=== PATIENT | female | born 1995 | race Caucasian/White ===

== ENCOUNTER 2017-11-11 10:22 | Emergency (ER) | payer OTHER ==
[2017-11-11] MEDS ORDERED: ONDANSETRON 4 MG (ODT) TAB ONE (12:58)
--- NOTE | 2017-11-11 13:20 | RAD REPORT ---
EXAM DESCRIPTION: RAD - Chest Pa And Lat (2 Views) - 11/11/2017 1:03 pm CLINICAL HISTORY: Sore throat, vomiting COMPARISON: January 2017 TECHNIQUE: PA and lateral views of the chest were obtained. FINDINGS: The lungs are clear. Lung markings are similar to prior imaging. Pectus excavatum deformi ty noted. Heart size is normal and central vasculature is within normal limits. No pleural effusion or pneumothorax seen. No acute bony finding noted. No aortic abnormality. IMPRESSION: No acute cardiopulmonary process. No significant change from comparison.
--- NOTE | 2017-11-11 14:19 | ER ---
Nurse's Notes [facility] Name: Mica Michel Age: 22 yrs Sex: Female : 1995 Arrival Date: 11/11/2017 Time: 10:23 Bed 14 Private MD: Diagnosis: Acute upper respiratory infection, unspecified;Vomiting Presentation: 11/11 10:48 Presenting complaint: Patient states: Sore throat and vomiting since last night. rb1 Transition of care: patient was not received from another setting of care. Onset of symptoms was November 11, 2017 at 01:00. Care prior to arrival: None. 10:48 Method Of Arrival: Ambulatory rb1 10:48 Acuity: ALANNA 4 rb1 Triage Assessment: 10:45 General: Appears uncomfortable, slender, Behavior is calm, cooperative, Denies fever. rb1 Pain: Complains of pain in throat Pain currently is 10 out of 10 on a pain scale. Pain began last night. EENT: Throat is reddened. Neuro: Level of Consciousness is awake, alert, obeys commands, Oriented to person, place, time, situation. Cardiovascular: Capillary refill < 3 seconds is brisk in bilateral fingers. Respiratory: Airway is patent Respiratory effort is even, unlabored, Respiratory pattern is regular, symmetrical. GI: Reports nausea, vomiting, since last night. : No signs and/or symptoms were reported regarding the genitourinary system. Derm: Skin is pink, warm \T\ dry. 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 - Social history:: The patient lives at home, Smoking status: Patient/guardian denies using tobacco. Screenin:48 Abuse screen: Denies threats or abuse. Nutritional screening: No deficits noted. rb1 Tuberculosis screening: No symptoms or risk factors identified. Fall Risk None identified. Assessment: 10:45 General: see triage assessment. rb1 10:45 Respiratory: Breath sounds with rhonchi bilaterally. rb1 11:40 Reassessment: Patient appears in no apparent distress at this time. Patient and/or rb1 family updated on plan of care and expected duration. Pain level reassessed. Patient is alert, oriented x 3, equal unlabored respirations, skin warm/dry/pink. 12:38 Reassessment: Patient appears in no apparent distress at this time. No changes from rb1 previously documented assessment. 13:28 Reassessment: Patient appears in no apparent distress at this time. Patient and/or rb1 family updated on plan of care and expected duration. Pain level reassessed. Patient is alert, oriented x 3, equal unlabored respirations, skin warm/dry/pink. Mother at bedside. 14:15 Reassessment: Patient appears in no apparent distress at this time. No changes from rb1 previously documented assessment. Vital Signs: 10:45 BP 130 / 88; Pulse 80; Resp 17; Temp 97.9(O); Pulse Ox 100% on R/A; Weight 66 kg (M); rb1 Height 5 ft. 10 in. (177.80 cm) (R); Pain 10/10; 11:30 BP 108 / 93; Pulse 59; Resp 17; Pulse Ox 100% on R/A; rb1 12:30 BP 115 / 72; Pulse 60; Resp 16; Pulse Ox 100% on R/A; rb1 13:30 BP 117 / 73; Pulse 60; Resp 17; Pulse Ox 100% ; rb1 14:23 BP 121 / 71; Pulse 59; Resp 18; Pulse Ox 100% on R/A; rb1 10:45 Body Mass Index 20.88 (66.00 kg, 177.80 cm) rb1 ED Course: 10:23 Patient arrived in ED. as 10:45 Arm band placed on right wrist. rb1 10:47 Thania Payne, RN is Primary Nurse. rb1 10:48 Patient has correct armband on for positive identification. Bed in low position. Call rb1 light in reach. Side rails up X 1. Pulse ox on. NIBP on. 10:49 Triage completed. rb1 10:51 John Harris MD is Attending Physician. gs 12:56 Patient moved to radiology via wheelchair. jb2 13:02 X-ray completed. Patient tolerated procedure well. Patient moved back from radiology. jb2 13:03 XRAY Chest Pa And Lat (2 Views) In Process Unspecified. EDMS 14:32 Throat Culture Sent. rb1 14:33 No provider procedures requiring assistance completed. Patient did not have IV access rb1 during this emergency room visit. Administered Medications: 12:40 Drug: Zofran 4 mg Route: PO; rb1 13:09 Follow up: Response: No adverse reaction; Nausea is decreased rb1 Outcome: 14:18 Discharge ordered by . gs 14:34 Discharged to home ambulatory, with family. rb1 14:34 Condition: stable 14:34 Discharge instructions given to patient, Instructed on discharge instructions, follow up and referral plans. medication usage, Demonstrated understanding of instructions, follow-up care, medications, Prescriptions given X 1. 14:35 Patient left the ED. rb1 Signatures: Dispatcher [employer] EDMS Ty Ceballos Amelia as Barber, Rebecca, RN RN rb1 John Harris MD MD Corrections: (The following items were deleted from the chart) 13:03 10:48 General: see triage assessment. rb1 rb1 13:03 10:48 Respiratory: Reports cough that is Airway is patent Respiratory effort is even, rb1 unlabored, Respiratory pattern is regular, symmetrical, rb1 14:33 14:23 BP 121 / 71; Pulse 67bpm; Resp 17bpm; Pulse Ox 99% RA; rb1 rb1
--- NOTE | 2017-11-11 14:19 | EDPHYS ---
Physician Documentation [facility] Name: Mica Michel Age: 22 yrs Sex: Female : 1995 Arrival Date: 11/11/2017 Time: 10:23 Bed 14 Private MD: ED Physician John Harris HPI: 11/11 14:14 This 22 yrs old Female presents to ER via Ambulatory with complaints of Sore gs Throat, Vomiting. 14:14 The patient or guardian reports cough, that is intermittent. Onset: The gs symptoms/episode began/occurred yesterday. Severity of symptoms: At their worst the symptoms were moderate, in the emergency department the symptoms are unchanged. Modifying factors: The symptoms are alleviated by nothing, the symptoms are aggravated by nothing. Associated signs and symptoms: Pertinent positives: sore throat, vomiting. The patient has experienced similar episodes in the past, a few times. The patient has not recently seen a physician. 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 - Social history:: The patient lives at home, Smoking status: Patient/guardian denies using tobacco. ROS: 14:14 All other systems are negative. gs Exam: 14:14 Head/Face: Normocephalic, atraumatic. Eyes: Pupils equal round and reactive to light, gs extra-ocular motions intact. Lids and lashes normal. Conjunctiva and sclera are non-icteric and not injected. Cornea within normal limits. Periorbital areas with no swelling, redness, or edema. ENT: Nares patent. No nasal discharge, no septal abnormalities noted. Tympanic membranes are normal and external auditory canals are clear. Oropharynx with no redness, swelling, or masses, exudates, or evidence of obstruction, uvula midline. Mucous membranes moist. Neck: Trachea midline, no thyromegaly or masses palpated, and no cervical lymphadenopathy. Supple, full range of motion without nuchal rigidity, or vertebral point tenderness. No Meningismus. Chest/axilla: Normal chest wall appearance and motion. Nontender with no deformity. No lesions are appreciated. Cardiovascular: Regular rate and rhythm with a normal S1 and S2. No gallops, murmurs, or rubs. Normal PMI, no JVD. No pulse deficits. Respiratory: Lungs have equal breath sounds bilaterally, clear to auscultation and percussion. No rales, rhonchi or wheezes noted. No increased work of breathing, no retractions or nasal flaring. Abdomen/GI: Soft, non-tender, with normal bowel sounds. No distension or tympany. No guarding or rebound. No evidence of tenderness throughout. Back: No spinal tenderness. No costovertebral tenderness. Full range of motion. Skin: Warm, dry with normal turgor. Normal color with no rashes, no lesions, and no evidence of cellulitis. MS/ Extremity: Pulses equal, no cyanosis. Neurovascular intact. Full, normal range of motion. Neuro: Awake and alert, GCS 15, oriented to person, place, time, and situation. Cranial nerves II-XII grossly intact. Motor strength 5/5 in all extremities. Sensory grossly intact. Cerebellar exam normal. Normal gait. 14:14 Constitutional: The patient appears alert, awake. Vital Signs: 10:45 BP 130 / 88; Pulse 80; Resp 17; Temp 97.9(O); Pulse Ox 100% on R/A; Weight 66 kg (M); rb1 Height 5 ft. 10 in. (177.80 cm) (R); Pain 10/10; 11:30 BP 108 / 93; Pulse 59; Resp 17; Pulse Ox 100% on R/A; rb1 12:30 BP 115 / 72; Pulse 60; Resp 16; Pulse Ox 100% on R/A; rb1 13:30 BP 117 / 73; Pulse 60; Resp 17; Pulse Ox 100% ; rb1 14:23 BP 121 / 71; Pulse 59; Resp 18; Pulse Ox 100% on R/A; rb1 10:45 Body Mass Index 20.88 (66.00 kg, 177.80 cm) rb1 MDM: 11:41 Patient medically screened. gs 14:14 Differential Diagnosis: Bronchitis Influenza Upper Respiratory Infection. Data gs reviewed: vital signs, nurses notes. Response to treatment: the patient's symptoms have markedly improved after treatment, patient is well hydrated. no emesis . 11/11 11:43 Order name: Strep; Complete Time: 13:25 gs 11/11 12:24 Order name: Throat Culture EDTN 11/11 11:43 Order name: XRAY Chest Pa And Lat (2 Views); Complete Time: 13:25 gs Administered Medications: 12:40 Drug: Zofran 4 mg Route: PO; rb1 13:09 Follow up: Response: No adverse reaction; Nausea is decreased rb1 Disposition: 11/11/17 14:18 Discharged to Home. Impression: Acute upper respiratory infection, unspecified, Vomiting. - Condition is Stable. - Discharge Instructions: Nausea and Vomiting, Upper Respiratory Infection, Adult, Viral Infections. - Prescriptions for Zofran 4 mg Oral Tablet - take 1 tablet by ORAL route every 12 hours As needed; 10 tablet. - Work release form, Medication Reconciliation Form, Thank You Letter, Antibiotic Education, Prescription Opioid Use form. - Follow up: Private Physician; When: 2 - 3 days; Reason: Re-evaluation by your physician. Signatures: Dispatcher [employer] [facility] Thania Payne, RN RN rb1 John Harris MD MD
== END 2017-11-11 14:35 | disposition home or self-care (01) ==
LOC: ER 10:22
DX: J06.9 Acute upper respiratory infection, unspecified (principal); Z88.8 Allergy status to other drugs, medicaments and biological substances
CPT/HCPCS: 71046; 87070; 87081; 99284

== ENCOUNTER 2019-01-14 12:47 | Emergency (ER) | payer OTHER ==
[2019-01-14] MEDS ORDERED: NA CHLORIDE 0.9% 1,000 ML ONE (13:31)
[2019-01-14] MEDS ORDERED: LORazepam 2 MG/ML VIAL ONE (13:31)
--- NOTE | 2019-01-14 13:44 | RAD REPORT ---
EXAM DESCRIPTION: Char Single View01/14/2019 1:31 pm CLINICAL HISTORY: Chest pain COMPARISON: November 2017 FINDINGS: The lungs appear clear of acute infiltrate. The heart is normal size. Pectus deformity IMPRESSION: No acute abnormalities displayed
[2019-01-14 13:46] LABS: Absolute Lymphocytes (CBC) 1.2 K/uL (0.7-4.9); Absolute Monocytes 0.4 K/uL (0.1-1.3); Absolute Neutrophil 4.2 K/uL (1.8-8.0); Basophils % 0.7 % (0-1.3); Eosinophils % 1.2 % (0-4.4); Hematocrit 40.1 % (36.0-45.0); Lymphocytes % 19.8 % (15.3-44.8); Monocytes % 6.1 % (3.3-12.3); RBC Red Blood Cell Count 4.68 M/uL (3.86-4.86)
[2019-01-14 13:50] LABS: Protime INR 1.02
[2019-01-14 14:02] LABS: ALT/SGPT 13 U/L (12-78); AST/SGOT 10 U/L (15-37); Albumin 4.2 g/dL (3.4-5.0); Alkaline Phosphatase 44 U/L (45-117); BUN Blood Urea Nitrogen 20 mg/dL (7-18); Bicarbonate 23 mmol/L (21-32); Bilirubin Direct 0.1 mg/dL (0-0.2); Bilirubin Total 0.5 mg/dL (0.2-1.0); Glucose Level 76 mg/dL (74-106); NT PRO-BNP 63 pg/mL (<125); Potassium 3.6 mmol/L (3.5-5.1); Protein, Total 7.5 g/dL (6.4-8.2); Sodium Level 141 mmol/L (136-145); Troponin (Emerg Dept Use Only) < 0.02 ng/mL (0.0-0.045)
--- NOTE | 2019-01-14 15:22 | ER ---
Nurse's Notes [facility] Name: Mica Michel Age: 23 yrs Sex: Female : 1995 Arrival Date: 01/14/2019 Time: 12:50 Bed 8 Private MD: Diagnosis: Anxiety disorder, unspecified;Other chest pain-non cardiac Presentation: 01/14 13:11 Presenting complaint: Panic attack while standing in line outside. Also reports chest hb pain and cramping of extremities. R40s. Hx of anxiety. Transition of care: patient was not received from another setting of care. Onset of symptoms was January 14, 2019. Risk Assessment: Do you want to hurt yourself or someone else? Patient reports no desire to harm self or others. Care prior to arrival: None. 13:11 Method Of Arrival: Ambulatory hb 13:11 Acuity: ALANNA 2 hb 13:16 Initial Sepsis Screen: Does the patient meet any 2 criteria? No. Patient's initial hb sepsis screen is negative. Does the patient have a suspected source of infection? No. Patient's initial sepsis screen is negative. 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 - Social history:: Smoking status: Patient/guardian denies using tobacco. - Family history:: not pertinent. - Ebola Screening: : No symptoms or risks identified at this time. Screenin:20 Abuse screen: Denies threats or abuse. Denies injuries from another. Nutritional sv screening: No deficits noted. Tuberculosis screening: No symptoms or risk factors identified. Fall Risk None identified. Assessment: 13:20 General: Appears in no apparent distress. comfortable, well groomed, well developed, sv Behavior is calm. Pain: Complains of pain in chest Pain does not radiate. Pain currently is 4 out of 10 on a pain scale. Quality of pain is described as "tight" Pain began suddenly, Is intermittent. Neuro: Level of Consciousness is awake, alert, obeys commands, Oriented to person, place, time, situation, Moves all extremities. Full function Gait is steady, Speech is normal. Cardiovascular: Patient's skin is warm and dry. Respiratory: Respiratory effort is even, unlabored, Respiratory pattern is regular, symmetrical. Derm: Skin is pink, warm \\T\\ dry. Vital Signs: 13:13 BP 138 / 109; Pulse 167; Resp 46; Temp 97.9(TE); Pulse Ox 98% on R/A; Weight 82.55 kg; hb Height 5 ft. 10 in. (177.80 cm); Pain 4/10; 13:58 BP 102 / 73; Pulse 76; Resp 16; Pulse Ox 100% ; sv 14:50 BP 118 / 75; Pulse 80; Resp 16; Pulse Ox 99% ; sv 16:07 BP 110 / 78; Pulse 81; Resp 18; Temp 98; Pulse Ox 100% on R/A; Pain 0/10; mg2 13:13 Body Mass Index 26.11 (82.55 kg, 177.80 cm) hb ED Course: 12:50 Patient arrived in ED. baron 12:50 Colt Man MD is Attending Physician. baron 13:02 EKG done, by technical applications scientist. reviewed by Colt Man MD. sm3 13:13 Triage completed. hb 13:15 Arm band placed on. hb 13:20 Initial lab(s) drawn, by ia, sent to lab. Inserted saline lock: 20 gauge in right sv antecubital area, using aseptic technique. Blood collected. Flushed right antecubital with 5 ml normal saline. 13:20 Patient maintains SpO2 saturation greater than 95% on room air. sv 13:20 Patient has correct armband on for positive identification. Bed in low position. Call sv light in reach. Side rails up X 1. Adult w/ patient. Pulse ox on. NIBP on. 13:28 Wendy Clinton RN is Primary Nurse. sv 13:29 X-ray completed. Portable x-ray completed in exam room. Patient tolerated procedure sw well. 13:33 XRAY Chest (1 view) In Process Unspecified. EDMS 14:51 Awaiting re-evaluation by ER provider. sv 15:00 Report given to Ziggy HOPKINS. sv 16:06 No provider procedures requiring assistance completed. IV discontinued, intact, mg2 bleeding controlled, No redness/swelling at site. Pressure dressing applied. Administered Medications: 13:30 Drug: NS 0.9% 1000 ml Route: IV; Rate: 1 bolus; Site: right antecubital; hb 14:51 Follow up: Response: No adverse reaction; IV Status: Completed infusion; IV Intake: sv 1000ml 15:13 Not Given (Patient Refused; patient is not anxious ): Ativan 1 mg IVP once mg2 Intake: 14:51 IV: 1000ml; Total: 1000ml. sv Outcome: 15:21 Discharge ordered by . baron 16:07 Discharged to home ambulatory, with family. mg2 16:07 Condition: stable 16:07 Discharge instructions given to patient, family, Instructed on discharge instructions, follow up and referral plans. medication usage, Demonstrated understanding of instructions, follow-up care, medications, Prescriptions given X 1. 16:08 Patient left the ED. mg2 Signatures: Dispatcher [employer] EDWendy Dave RN RN sv Anderson, Corey, MD MD cha Warren, Shannon sw Baxter, Heather, RN RN Ziggy Terry RN RN [facility] Elva Isidro 3
--- NOTE | 2019-01-14 15:22 | EDPHYS ---
Physician Documentation [facility] Name: Mica Michel Age: 23 yrs Sex: Female : 1995 Arrival Date: 01/14/2019 Time: 12:50 Bed 8 Private MD: ED Physician Colt Man HPI: 01/14 13:36 This 23 yrs old Female presents to ER via Ambulatory with complaints of baron Anxiety, Chest Pain. 13:36 The patient or guardian reports chest pain that is located primarily in the substernal baron area. The pain does not radiate. Associated signs and symptoms: Pertinent positives: palpitations, anxiety. The chest pain is described as squeezing. Modifying factors: The symptoms are alleviated by nothing. the symptoms are aggravated by nothing. Severity of pain: At its worst the pain was mild in the emergency department the pain is unchanged. The patient has not experienced similar symptoms in the past. 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 - Social history:: Smoking status: Patient/guardian denies using tobacco. - Family history:: not pertinent. - Ebola Screening: : No symptoms or risks identified at this time. ROS: 13:36 Constitutional: Negative for fever, chills, and weight loss, Eyes: Negative for injury, baron pain, redness, and discharge, ENT: Negative for injury, pain, and discharge, Neck: Negative for injury, pain, and swelling, Respiratory: Negative for shortness of breath, cough, wheezing, and pleuritic chest pain, Abdomen/GI: Negative for abdominal pain, nausea, vomiting, diarrhea, and constipation, Back: Negative for injury and pain, : Negative for injury, bleeding, discharge, and swelling, MS/Extremity: Negative for injury and deformity, Skin: Negative for injury, rash, and discoloration, Neuro: Negative for headache, weakness, numbness, tingling, and seizure, Psych: Negative for depression, anxiety, suicide ideation, homicidal ideation, and hallucinations, Allergy/Immunology: Negative for hives, rash, and allergies, Endocrine: Negative for neck swelling, polydipsia, polyuria, polyphagia, and marked weight changes, Hematologic/Lymphatic: Negative for swollen nodes, abnormal bleeding, and unusual bruising. 13:36 Cardiovascular: Positive for chest pain, of the chest. Exam: 13:36 Constitutional: This is a well developed, well nourished patient who is awake, alert, baron and in no acute distress. Head/Face: Normocephalic, atraumatic. Eyes: Pupils equal round and reactive to light, extra-ocular motions intact. Lids and lashes normal. Conjunctiva and sclera are non-icteric and not injected. Cornea within normal limits. Periorbital areas with no swelling, redness, or edema. ENT: Nares patent. No nasal discharge, no septal abnormalities noted. Tympanic membranes are normal and external auditory canals are clear. Oropharynx with no redness, swelling, or masses, exudates, or evidence of obstruction, uvula midline. Mucous membranes moist. Neck: Trachea midline, no thyromegaly or masses palpated, and no cervical lymphadenopathy. Supple, full range of motion without nuchal rigidity, or vertebral point tenderness. No Meningismus. Chest/axilla: Normal chest wall appearance and motion. Nontender with no deformity. No lesions are appreciated. Cardiovascular: Regular rate and rhythm with a normal S1 and S2. No gallops, murmurs, or rubs. Normal PMI, no JVD. No pulse deficits. Respiratory: Lungs have equal breath sounds bilaterally, clear to auscultation and percussion. No rales, rhonchi or wheezes noted. No increased work of breathing, no retractions or nasal flaring. Abdomen/GI: Soft, non-tender, with normal bowel sounds. No distension or tympany. No guarding or rebound. No evidence of tenderness throughout. Back: No spinal tenderness. No costovertebral tenderness. Full range of motion. Female : Normal external genitalia. Skin: Warm, dry with normal turgor. Normal color with no rashes, no lesions, and no evidence of cellulitis. MS/ Extremity: Pulses equal, no cyanosis. Neurovascular intact. Full, normal range of motion. Neuro: Awake and alert, GCS 15, oriented to person, place, time, and situation. Cranial nerves II-XII grossly intact. Motor strength 5/5 in all extremities. Sensory grossly intact. Cerebellar exam normal. Normal gait. Psych: Awake, alert, with orientation to person, place and time. Behavior, mood, and affect are within normal limits. 13:36 Musculoskeletal/extremity: DVT Exam: No signs of deep vein thrombosis. no pain, no swelling, no tenderness, negative Homans' sign noted on exam, no appreciated bluish discoloration, no erythema, no increased warmth. Vital Signs: 13:13 BP 138 / 109; Pulse 167; Resp 46; Temp 97.9(TE); Pulse Ox 98% on R/A; Weight 82.55 kg; hb Height 5 ft. 10 in. (177.80 cm); Pain 4/10; 13:58 BP 102 / 73; Pulse 76; Resp 16; Pulse Ox 100% ; sv 14:50 BP 118 / 75; Pulse 80; Resp 16; Pulse Ox 99% ; sv 16:07 BP 110 / 78; Pulse 81; Resp 18; Temp 98; Pulse Ox 100% on R/A; Pain 0/10; mg2 13:13 Body Mass Index 26.11 (82.55 kg, 177.80 cm) hb MDM: 12:51 Patient medically screened. [facility] 01/14 12:56 Order name: Basic Metabolic Panel; Complete Time: 15:17 [facility] 01/14 12:56 Order name: CBC with Diff; Complete Time: 15:17 [facility] 01/14 12:56 Order name: LFT's; Complete Time: 15:17 [facility] 01/14 12:56 Order name: Magnesium; Complete Time: 15:17 [facility] 01/14 12:56 Order name: NT PRO-BNP; Complete Time: 15:17 [facility] 01/14 12:56 Order name: PT-INR; Complete Time: 15:17 [facility] 01/14 12:56 Order name: Troponin (emerg Dept Use Only); Complete Time: 15:17 [facility] 01/14 12:56 Order name: XRAY Chest (1 view); Complete Time: 15:17 [facility] 01/14 12:56 Order name: Acetaminophen; Complete Time: 15:17 [facility] 01/14 12:56 Order name: ETOH Level; Complete Time: 15:17 [facility] 01/14 12:56 Order name: Ptt, Activated; Complete Time: 15:17 [facility] 01/14 12:56 Order name: Salicylate; Complete Time: 15:17 [facility] 01/14 12:56 Order name: EKG; Complete Time: 12:57 [facility] 01/14 12:56 Order name: Cardiac monitoring; Complete Time: 13:40 [facility] 01/14 12:56 Order name: EKG - Nurse/Tech; Complete Time: 13:40 [facility] 01/14 12:56 Order name: IV Saline Lock; Complete Time: 13:40 [facility] 01/14 12:56 Order name: Labs collected and sent; Complete Time: 13:40 [facility] 01/14 12:56 Order name: O2 Per Protocol; Complete Time: 13:40 [facility] 01/14 12:56 Order name: O2 Sat Monitoring; Complete Time: 13:40 [facility] Administered Medications: 13:30 Drug: NS 0.9% 1000 ml Route: IV; Rate: 1 bolus; Site: right antecubital; hb 14:51 Follow up: Response: No adverse reaction; IV Status: Completed infusion; IV Intake: sv 1000ml 15:13 Not Given (Patient Refused; patient is not anxious ): Ativan 1 mg IVP once mg2 Disposition: 01/14/19 15:21 Discharged to Home. Impression: Anxiety disorder, unspecified, Other chest pain - non cardiac. - Condition is Stable. - Discharge Instructions: Panic Attacks, Nonspecific Chest Pain, Panic Attacks, [id number]. - Prescriptions for Benadryl 25 mg Oral Capsule - take 1 capsule by ORAL route every 6 hours As needed; 30 tablet. - Medication Reconciliation Form, Thank You Letter, Antibiotic Education, Prescription Opioid Use form. - Follow up: Private Physician; When: 2 - 3 days; Reason: Recheck today's complaints, Continuance of care, Re-evaluation by your physician. - Problem is new. - Symptoms have improved. Signatures: Dispatcher [employer] EDWendy Dave RN RN sv Anderson, Corey, MD MD cha Baxter, Heather, RN RN hb Gardose, Michele, RN RN mg2 Corrections: (The following items were deleted from the chart) 16:08 15:21 01/14/2019 15:21 Discharged to Home. Impression: Anxiety disorder, unspecified; mg2 Other chest pain - non cardiac. Condition is Stable. Discharge Instructions: Panic Attacks, Nonspecific Chest Pain, Panic Attacks, [id number]. Prescriptions for Benadryl 25 mg Oral Capsule - take 1 capsule by ORAL route every 6 hours As needed; 30 tablet. and Forms are Medication Reconciliation Form, Thank You Letter, Antibiotic Education, Prescription Opioid Use. Follow up: Private Physician; When: 2 - 3 days; Reason: Recheck today's complaints, Continuance of care, Re-evaluation by your physician. Problem is new. Symptoms have improved. baron
--- NOTE | 2019-01-15 07:19 | EKG ---
Test Date: 2019-01-14 Test Time: 12:54:37 Assembly Leader: TONEY MEASUREMENT RESULTS: Intervals: Rate: 94 WA: 126 QRSD: 86 QT: 360 QTc: 450 [place]: P: 73 WA: 126 QRS: 80 T: -32 INTERPRETIVE STATEMENTS: Sinus rhythm with occasional premature ventricular complexes Nonspecific ST and T wave abnormality Abnormal ECG Compared to ECG 01/29/2017 12:17:58 Ventricular premature complex(es) now present ST (T wave) deviation now present T-wave abnormality no longer present Electronically Signed On 01-15-19 07:16:10 CDT by Jose Manuel Rosa
== END 2019-01-14 16:08 | disposition home or self-care (01) ==
LOC: ER 12:47
DX: F41.9 Anxiety disorder, unspecified (principal); R07.9 Chest pain, unspecified; Z88.8 Allergy status to other drugs, medicaments and biological substances
CPT/HCPCS: 36415; 71045; 80048; 80076; 80320; 80329; 83735; 83880; 84484; 85025; 85610; 85730; 93005; 96360; 99285; J7030

== ENCOUNTER 2019-08-13 19:08 | Emergency (ER) | payer OTHER, SELFPAY ==
[2019-08-13 20:18] LABS: Absolute Lymphocytes (CBC) 1.3 K/uL (0.7-4.9); Basophils % 0.6 % (0-1.3); Hematocrit 37.8 % (36.0-45.0); Lymphocytes % 30.7 % (15.3-44.8); MPV 10.5 fL (7.6-11.3); RBC Red Blood Cell Count 4.45 M/uL (3.86-4.86)
[2019-08-13 20:39] LABS: ALT/SGPT 17 U/L (12-78); AST/SGOT 10 U/L (15-37); Albumin 3.7 g/dL (3.4-5.0); Alkaline Phosphatase 46 U/L (45-117); BUN Blood Urea Nitrogen 18 mg/dL (7-18); Bicarbonate 25 mmol/L (21-32); Bilirubin Total 0.4 mg/dL (0.2-1.0); Glucose Level 102 mg/dL (74-106); Lipase 156 U/L (73-393); Magnesium 1.9 mg/dL (1.8-2.4); Sodium Level 141 mmol/L (136-145); Troponin (Emerg Dept Use Only) < 0.02 ng/mL (0.0-0.045)
[2019-08-13] MEDS ORDERED: POTASSIUM CL SA 10 MEQ TAB PO ONE (21:22)
[2019-08-13 21:30] LABS: Urine Blood NEGATIVE (NEG); Urine Glucose NEGATIVE (NEG); Urine Protein 1+ (NEG); Urine pH 6.5 (5.0-7.0)
[2019-08-13 22:12] LABS: Urine Bacteria 20-50 /HPF (<20); Urine Culture Reflex Order REFLEXED; Urine Mucus 2+ /HPF (NONE SEEN); Urine RBC <5 /HPF (NONE SEEN)
--- NOTE | 2019-08-13 22:32 | ER ---
Nurse's Notes [facility] Name: Mica Michel Age: 24 yrs Sex: Female : 1995 Arrival Date: 08/13/2019 Time: 19:11 Bed 20 Private MD: Diagnosis: Near Syncope;POTS (differential);Acute cystitis without hematuria Presentation: 08/13 19:11 Presenting complaint: EMS states: SHE WAS FEELING SICK FOR COUPLE OF DAYS NOW. TODAY AT [employer] WORK, IT HAS PROGRESSIVELY WORSENING AND HAVING SOME CHEST PAIN. SHARP INTERMITTENT PAIN 7/10 THAT RADIATES UNDER THE LEFT BREAST DOWN TO THE LEFT SIDE, AND ALSO TO THE LEFT ARM. WITH HISTORY OF SVT, ON EKG SHE IS SINUS TACH AT 106. Transition of care: patient was not received from another setting of care. Onset of symptoms was August 13, 2019 at 18:00. Risk Assessment: Do you want to hurt yourself or someone else? Patient reports no desire to harm self or others. Initial Sepsis Screen: Does the patient meet any 2 criteria? No. Patient's initial sepsis screen is negative. Does the patient have a suspected source of infection? No. Patient's initial sepsis screen is negative. Care prior to arrival: None. 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 - Social history:: Smoking status: Patient/guardian denies using tobacco. - Ebola Screening: : No symptoms or risks identified at this time. Screenin:17 Abuse screen: Denies threats or abuse. Denies injuries from another. Nutritional rv screening: No deficits noted. Tuberculosis screening: No symptoms or risk factors identified. Fall Risk None identified. Assessment: 19:15 General: Appears in no apparent distress. Behavior is anxious. Pain: Complains of pain rv in chest Pain radiates to left arm Pain currently is 7 out of 10 on a pain scale. Quality of pain is described as sharp. Neuro: Level of Consciousness is awake, alert, obeys commands, Oriented to person, place, time, situation. Cardiovascular: Patient's skin is warm and dry. Rhythm is regular. Respiratory: Airway is patent. Derm: Skin is intact. Vital Signs: 19:14 BP 136 / 71; Pulse 94; Resp 24; Temp 98; Pulse Ox 100% ; Weight 63.5 kg; Height 5 ft. rv 11 in. (180.34 cm); Pain 7/10; 20:24 BP 117 / 63; Pulse 69; Resp 18; Pulse Ox 99% on R/A; rv 20:49 BP 111 / 71 LA Supine (auto/pedi); Pulse 63 MON; Resp 18 S; Pulse Ox 100% on R/A; ds4 20:51 BP 112 / 75 LA Sitting (auto/pedi); Pulse 70 MON; Resp 14 S; Pulse Ox 100% on R/A; ds4 20:53 BP 114 / 78 LA Standing (auto/pedi); Pulse 78 MON; Resp 18 S; Pulse Ox 100% on R/A; ds4 22:00 BP 114 / 68; Pulse 66; Resp 16; Pulse Ox 100% on R/A; rv 23:01 BP 110 / 60; Pulse 62; Resp 16; Pulse Ox 100% ; rv 19:14 Body Mass Index 19.53 (63.50 kg, 180.34 cm) rv ED Course: 19:11 Patient arrived in ED. rv 19:13 Emir Schulte MD is Attending Physician. ps1 19:14 Triage completed. rv 19:17 Patient has correct armband on for positive identification. Bed in low position. Call rv light in reach. Side rails up X 1. Pulse ox on. NIBP on. 19:17 Patient placed in the treatment room, on a stretcher, on redevelopment manager, on pulse rv oximetry, Patient notified of wait time. 19:18 Maintain EMS IV. Dressing intact. Good blood return noted. Site clean \T\ dry. Gauge \T\ rv site: G20 right AC. 19:24 EKG done, by ED staff, reviewed by Emir Schulte MD. ds4 19:51 Ameya Solitario, SANDEEP is Primary Nurse. rv 23:02 No provider procedures requiring assistance completed. IV discontinued, intact, rv bleeding controlled, No redness/swelling at site. Pressure dressing applied. Administered Medications: 21: Drug: Potassium Chloride 40 mEq Route: PO; mg2 23:02 Follow up: Response: No adverse reaction rv Outcome: 22:30 Discharge ordered by . ps1 23:03 Discharged to home ambulatory. rv 23:03 Condition: good 23:03 Discharge instructions given to patient, Instructed on discharge instructions, follow up and referral plans. medication usage, Demonstrated understanding of instructions, follow-up care, medications, Prescriptions given X 1. 23:04 Patient left the ED. rv Signatures: Maxx Hung ds4 Emir Schulte MD MD ps1 Ziggy Terry, RN RN mg2 Ameya Solitario RN RN rv
--- NOTE | 2019-08-13 22:33 | EDPHYS ---
Physician Documentation [facility] Name: Mica Michel Age: 24 yrs Sex: Female : 1995 Arrival Date: 08/13/2019 Time: 19:11 Bed 20 Private MD: ED Physician Emir Schulte HPI: 08/13 21:35 This 24 yrs old Female presents to ER via EMS with complaints of Near-Syncope.ps1 21:35 Patient has been seen and evaluated for symptoms similar in the past. Diagnoses of ps1 hyperventilation, anxiety, and syncope. Had cardiac evaluation previously with no new medications. Hx of PVC, SVT, Tachycardia. Tonight at work ([employer]) states that she has been sick for last two days. Possible dehydration. Had PVC on monitor. . 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 - Social history:: Smoking status: Patient/guardian denies using tobacco. - Ebola Screening: : No symptoms or risks identified at this time. ROS: 21:35 Constitutional: Negative for fever, chills, and weight loss, Eyes: Negative for injury, ps1 pain, redness, and discharge, ENT: Negative for injury, pain, and discharge, Cardiovascular: Negative for chest pain, palpitations, and edema, Respiratory: Negative for shortness of breath, cough, wheezing, and pleuritic chest pain, Abdomen/GI: Negative for abdominal pain, nausea, vomiting, diarrhea, and constipation, Skin: Negative for injury, rash, and discoloration, Psych: Negative for depression, anxiety, suicide ideation, homicidal ideation, and hallucinations. 21:35 Neuro: Positive for near syncope. Exam: 21:35 Constitutional: This is a well developed, well nourished patient who is awake, alert, ps1 and in no acute distress. Head/Face: Normocephalic, atraumatic. Eyes: Pupils equal round and reactive to light, extra-ocular motions intact. Lids and lashes normal. Conjunctiva and sclera are non-icteric and not injected. Chest/axilla: Normal chest wall appearance and motion. Nontender with no deformity. No lesions are appreciated. Cardiovascular: Regular rate and rhythm. No gallops, murmurs, or rubs. Normal PMI, no JVD. No pulse deficits. Respiratory: Lungs have equal breath sounds bilaterally, clear to auscultation and percussion. No rales, rhonchi or wheezes noted. No increased work of breathing, no retractions or nasal flaring. Abdomen/GI: Soft, non-tender, with normal bowel sounds. No distension or tympany. No guarding or rebound. No evidence of tenderness throughout. Skin: Warm, dry with normal turgor. Normal color with no rashes, no lesions, and no evidence of cellulitis. MS/ Extremity: Pulses equal, no cyanosis. Neurovascular intact. Full, normal range of motion. Neuro: Awake and alert, GCS 15, oriented to person, place, time, and situation. Cranial nerves II-XII grossly intact. Sensory grossly intact. Vital Signs: 19:14 BP 136 / 71; Pulse 94; Resp 24; Temp 98; Pulse Ox 100% ; Weight 63.5 kg; Height 5 ft. rv 11 in. (180.34 cm); Pain 7/10; 20:24 BP 117 / 63; Pulse 69; Resp 18; Pulse Ox 99% on R/A; rv 20:49 BP 111 / 71 LA Supine (auto/pedi); Pulse 63 MON; Resp 18 S; Pulse Ox 100% on R/A; ds4 20:51 BP 112 / 75 LA Sitting (auto/pedi); Pulse 70 MON; Resp 14 S; Pulse Ox 100% on R/A; ds4 20:53 BP 114 / 78 LA Standing (auto/pedi); Pulse 78 MON; Resp 18 S; Pulse Ox 100% on R/A; ds4 22:00 BP 114 / 68; Pulse 66; Resp 16; Pulse Ox 100% on R/A; rv 23:01 BP 110 / 60; Pulse 62; Resp 16; Pulse Ox 100% ; rv 19:14 Body Mass Index 19.53 (63.50 kg, 180.34 cm) rv MDM: 19:32 Patient medically screened. ps1 22:32 Data reviewed: vital signs, nurses notes, lab test result(s), EKG, and as a result, I ps1 will discharge patient. Counseling: I had a detailed discussion with the patient and/or guardian regarding: the historical points, exam findings, and any diagnostic results supporting the discharge/admit diagnosis, lab results, radiology results, the need for outpatient follow up. 08/13 19:48 Order name: CBC with Diff; Complete Time: 20:24 ps1 08/13 19:48 Order name: Lipase; Complete Time: 20:59 ps1 08/13 19:48 Order name: Magnesium; Complete Time: 20:59 ps1 08/13 19:48 Order name: Troponin (emerg Dept Use Only); Complete Time: 20:59 ps1 08/13 19:48 Order name: CMP; Complete Time: 20:59 ps1 08/13 20:45 Order name: Urine Microscopic Only; Complete Time: 22:25 ds4 08/13 22:27 Interpretation: Abnormal: UWBC 5-10; UBACT 20-50; SQEPI 10-20. ps1 08/13 19:48 Order name: EKG; Complete Time: 19:49 ps1 08/13 19:48 Order name: Cardiac monitoring; Complete Time: 19:51 ps1 08/13 19:48 Order name: EKG - Nurse/Tech; Complete Time: 19:51 ps1 08/13 19:48 Order name: IV Saline Lock; Complete Time: 19:51 ps1 08/13 21:10 Order name: Urine Dipstick--Ancillary (enter results); Complete Time: 21:32 cm6 08/13 21:10 Order name: Urine --Ancillary (enter results); Complete Time: 21:32 cm6 08/13 22:14 Order name: Urine Culture EDAK 08/13 19:48 Order name: Labs collected and sent; Complete Time: 19:51 ps1 08/13 19:48 Order name: NPO; Complete Time: 19:51 ps1 08/13 19:48 Order name: O2 Per Protocol; Complete Time: 19:51 ps1 08/13 19:48 Order name: O2 Sat Monitoring; Complete Time: 19:51 ps1 08/13 19:48 Order name: Urine Dipstick-Ancillary (obtain specimen); Complete Time: 20:44 ps1 08/13 19:48 Order name: Orthostatic Blood Pressure; Complete Time: 21:01 ps1 EC:45 Rate is 76 beats/min. Rhythm is regular. QRS [place] is Normal. CA interval is normal. QRS ps1 interval is normal. QT interval is normal. No Q waves. T waves are Normal. No ST changes noted. Clinical impression: PVC's, artifact. Sinus. Otherwise normal. Interpreted by me. Administered Medications: 21:26 Drug: Potassium Chloride 40 mEq Route: PO; mg2 23:02 Follow up: Response: No adverse reaction rv Disposition: 08/13/19 22:30 Discharged to Home. Impression: Near Syncope, POTS (differential), Acute cystitis without hematuria. - Condition is Stable. - Discharge Instructions: Near-Syncope, Postural Orthostatic Tachycardia Syndrome, Urinary Tract Infection, Adult. - Prescriptions for Keflex 500 mg Oral Capsule - take 1 capsule by ORAL route every 8 hours for 5 days; 15 capsule. - Medication Reconciliation Form, Thank You Letter, Antibiotic Education, Prescription Opioid Use, Work release form form. - Follow up: Private Physician; When: As needed; Reason: Further diagnostic work-up, Recheck today's complaints, Continuance of care, Re-evaluation by your physician. Follow up: Emergency Department; When: As needed; Reason: Worsening of condition. - Problem is an ongoing problem. - Symptoms are unchanged. Signatures: Dispatcher [employer] EDMS Emir Schulte MD MD ps1 Ziggy Terry, SANDEEP RN mg2 Ameya Solitario RN RN rv Corrections: (The following items were deleted from the chart) 22:26 22:27 UWBC 5-10; UBACT 20-50; SQEPI 10-20. ps1 ps1 23:04 22:30 08/13/2019 22:30 Discharged to Home. Impression: Near Syncope; POTS rv (differential); Acute cystitis without hematuria. Condition is Stable. Forms are Medication Reconciliation Form, Thank You Letter, Antibiotic Education, Prescription Opioid Use. Follow up: Private Physician; When: As needed; Reason: Further diagnostic work-up, Recheck today's complaints, Continuance of care, Re-evaluation by your physician. Follow up: Emergency Department; When: As needed; Reason: Worsening of condition. Problem is an ongoing problem. Symptoms are unchanged. ps1
[2019-08-14 00:48] VITALS: TEMP 98
[2019-08-14 00:51] VITALS: O2SAT 100
[2019-08-14 00:57] VITALS: BP 110/60
--- NOTE | 2019-08-14 14:52 | EKG ---
Test Date: 2019-08-13 Test Time: 19:18:51 Materials Management Supervisor: JANNET MEASUREMENT RESULTS: Intervals: Rate: 76 WA: 128 QRSD: 96 QT: 400 QTc: 450 [place]: P: 81 WA: 128 QRS: 77 T: 40 INTERPRETIVE STATEMENTS: Sinus rhythm with frequent premature ventricular complexes Nonspecific ST abnormality Abnormal ECG Compared to ECG 01/14/2019 12:54:37 No significant changes Electronically Signed On 08-14-19 14:50:22 IN HOUSE CRA by Jose Manuel Rosa
== END 2019-08-13 23:04 | disposition home or self-care (01) ==
LOC: ER 19:08
DX: I49.8 Other specified cardiac arrhythmias (principal); N30.00 Acute cystitis without hematuria; Z88.8 Allergy status to other drugs, medicaments and biological substances
CPT/HCPCS: 36415; 80053; 81003; 81015; 81025; 83690; 83735; 84484; 85025; 87086; 87088; 93005; 99284

== ENCOUNTER 2019-10-20 09:28 | Emergency (ER) | payer OTHER, SELFPAY ==
[2019-10-20] MEDS ORDERED: IPRATROPIUM BROM 0.5MG/2.5ML ONE (09:54)
[2019-10-20] MEDS ORDERED: ALBUTEROL 2.5 MG/3 ML NEB SOL ONE (09:54)
[2019-10-20] MEDS ORDERED: METHYLPREDNISOLONE 125 MG INJ ONE (09:54)
[2019-10-20] MEDS ORDERED: HYDROCODONE/CHLORPHEN 5 ML/OSYR ONE (10:00)
[2019-10-20 10:04] LABS: Absolute Lymphocytes (CBC) 1.3 K/uL (0.7-4.9); Basophils % 0.4 % (0-1.3); Hematocrit 37.7 % (36.0-45.0); Lymphocytes % 17.5 % (15.3-44.8); RBC Red Blood Cell Count 4.33 M/uL (3.86-4.86)
[2019-10-20 10:13] LABS: BUN Blood Urea Nitrogen 14 mg/dL (7-18); Bicarbonate 25 mmol/L (21-32); Glucose Level 82 mg/dL (74-106); Potassium 3.2 mmol/L (3.5-5.1); Sodium Level 139 mmol/L (136-145)
--- NOTE | 2019-10-20 10:41 | RAD REPORT ---
EXAM DESCRIPTION: Char Single View10/20/2019 10:30 am CLINICAL HISTORY: Cough COMPARISON: 2018 FINDINGS: Right hemidiaphragm is indistinct The remainder of the lungs appear clear Heart is normal size IMPRESSION: Right hemidiaphragm is indistinct which may indicate a mild pneumonia
[2019-10-20] MEDS ORDERED: POTASSIUM CL SA 10 MEQ TAB PO ONE (10:42)
--- NOTE | 2019-10-20 11:30 | ER ---
Nurse's Notes [facility] Name: Mica Michel Age: 24 yrs Sex: Female : 1995 Arrival Date: 10/20/2019 Time: 09:31 Bed 7 Private MD: Diagnosis: Pneumonia due to other specified bacteria Presentation: 10/19 09:39 Chief complaint: Patient states: i have been coughing and sinus stuff since , tw2 today i just feel real sob, no fever. Coronavirus screen: The patient has NOT traveled to a country currently being monitored by the [facility] within the last 14 days. Ebola Screen: Patient negative for fever greater than or equal to 101.5 degrees Fahrenheit, and additional compatible Ebola Virus Disease symptoms Patient denies travel to an Ebola-affected area in the 21 days before illness onset. Initial Sepsis Screen: Does the patient meet any 2 criteria? No. Patient's initial sepsis screen is negative. Does the patient have a suspected source of infection? No. Patient's initial sepsis screen is negative. Risk Assessment: Do you want to hurt yourself or someone else? Patient reports no desire to harm self or others. 09:39 Method Of Arrival: Wheelchair tw2 09:39 Acuity: ALANNA 3 tw2 09:43 Onset of symptoms was October 20, 2019. tw2 Triage Assessment: 09:41 General: Appears in no apparent distress. uncomfortable, slender, Behavior is anxious. tw2 Pain: Complains of pain in chest. EENT: Reports nasal congestion nasal discharge. Cardiovascular:. Respiratory: Reports shortness of breath at rest on exertion cough that is non-productive, persistent. 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 tw2 Historical: - Allergies: 09:42 pseudoephedrine-DM; tw2 09:42 Nyquil; tw2 09:42 dayquil; tw2 - Home Meds: 09:42 None [Active]; tw2 - PMHx: 09:42 Tachycardia; SVT; pvc's; tw2 - PSHx: 09:42 None; tw2 - Immunization history:: Adult Immunizations. - Social history:: Smoking status: . Screenin:43 Abuse screen: Denies threats or abuse. Nutritional screening: No deficits noted. tw2 Tuberculosis screening: No symptoms or risk factors identified. Fall Risk None identified. Assessment: 09:45 General: Appears in no apparent distress. uncomfortable, slender, Behavior is calm, tw2 cooperative, appropriate for age. Pain: Complains of pain in chest Aggravated by deep breathing and cough. Neuro: Level of Consciousness is awake, alert, obeys commands, Oriented to person, place, time, situation. Cardiovascular: Heart tones S1 S2 Capillary refill < 3 seconds. Respiratory: Reports shortness of breath at rest on exertion cough that is non-productive, dry, persistent pain with cough pain with respiration Airway is patent Respiratory effort is even, unlabored, Respiratory pattern is regular, symmetrical, Breath sounds with wheezes bilaterally. GI: No signs and/or symptoms were reported involving the gastrointestinal system. Abdomen is flat, Bowel sounds present X 4 quads. : No signs and/or symptoms were reported regarding the genitourinary system. EENT: Reports nasal congestion nasal discharge. Derm: No signs and/or symptoms reported regarding the dermatologic system. Musculoskeletal: Range of motion: intact in all extremities. 10:45 Reassessment: Patient appears in no apparent distress at this time. Patient and/or hb family updated on plan of care and expected duration. Pain level reassessed. Patient is alert, oriented x 3, equal unlabored respirations, skin warm/dry/pink. 11:41 Reassessment: Patient appears in no apparent distress at this time. No changes from previously documented assessment. Patient and/or family updated on plan of care and expected duration. Pain level reassessed. Patient is alert, oriented x 3, equal unlabored respirations, skin warm/dry/pink. Patient states feeling better. Patient states symptoms have improved. Vital Signs: 09:39 BP 112 / 87; Pulse 83; Resp 17; Temp 98.3(TE); Pulse Ox 100% on R/A; Weight 61.23 kg tw2 (R); Height 5 ft. 11 in. (180.34 cm); Pain 10/10; 10:45 BP 129 / 71; Pulse 88; Resp 15; Pulse Ox 99% on R/A; hb 11:41 BP 117 / 71; Pulse 75; Resp 17; Pulse Ox 98% on R/A; hb 09:39 Body Mass Index 18.83 (61.23 kg, 180.34 cm) tw2 ED Course: 09:31 Patient arrived in ED. ag5 09:34 Bed in low position. Call light in reach. Adult w/ patient. hall monitor on. Pulse tw2 ox on. NIBP on. 09:39 Guevara Torres PA is PHCP. jr8 09:39 Brain Villagran MD is Attending Physician. jr8 09:41 Triage completed. tw2 09:41 Arm band placed on. tw2 09:45 Estephania Murphy, RN is Primary Nurse. tw2 09:55 Inserted saline lock: 20 gauge in right antecubital area, using aseptic technique. tw2 Blood collected. 11:50 No provider procedures requiring assistance completed. IV discontinued, intact, tw2 bleeding controlled, No redness/swelling at site. Pressure dressing applied. Administered Medications: 09:56 Drug: Albuterol - atroVENT (3:1) (2.5 mg - 0.5 mg) 3 ml Route: Nebulizer; hb 10:45 Follow up: Response: No adverse reaction hb 09:57 Drug: SOLU-Medrol 125 mg Route: IVP; Site: right antecubital; hb 10:45 Follow up: Response: No adverse reaction hb 09:57 Drug: Tussionex Pennkinetic ER 5 ml Route: PO; hb 10:45 Follow up: Response: No adverse reaction hb 10:59 Drug: Potassium Chloride 40 mEq Route: PO; hb 11:42 Follow up: Response: No adverse reaction tw2 Outcome: 11:29 Discharge ordered by . jr8 11:50 Discharged to home ambulatory, with family. tw2 11:50 Condition: stable 11:50 Discharge instructions given to patient, family, Instructed on discharge instructions, follow up and referral plans. no drinking with medication, no driving heavy equipment, medication usage, Demonstrated understanding of instructions, follow-up care, medications, Prescriptions given X 4. 11:50 Patient left the ED. tw2 Signatures: Guevara Torres PA PA jr8 Lisa Seals RN RN Estephania Murphy RN RN tw2 Yuki Lindsey ag5
--- NOTE | 2019-10-20 11:31 | EDPHYS ---
Physician Documentation [facility] Name: Mica Michel Age: 24 yrs Sex: Female : 1995 Arrival Date: 10/20/2019 Time: 09:31 Bed 7 Private MD: ED Physician Brain Villagran HPI: 10/19 10:47 This 24 yrs old Female presents to ER via Wheelchair with complaints of Chest jr8 Pain, Shortness Of Breath, Cough. 10:47 The patient has shortness of breath at rest. Onset: The symptoms/episode began/occurred jr8 acutely, today. Duration: The symptoms are continuous. The patient's shortness of breath is aggravated by coughing, is alleviated by nothing. Associated signs and symptoms: Pertinent positives: chest pain, sinus congestion . Severity of symptoms: At their worst the symptoms were moderate in the emergency department the symptoms are unchanged. The patient has not experienced similar symptoms in the past. The patient has not recently seen a physician. Stated that she started with cold like symptoms and now having cough and difficulty breathing . 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 tw2 Historical: - Allergies: 09:42 pseudoephedrine-DM; tw2 09:42 Nyquil; tw2 09:42 dayquil; tw2 - Home Meds: 09:42 None [Active]; tw2 - PMHx: 09:42 Tachycardia; SVT; pvc's; tw2 - PSHx: 09:42 None; tw2 - Immunization history:: Adult Immunizations. - Social history:: Smoking status: . ROS: 10:47 Eyes: Negative for injury, pain, redness, and discharge, ENT: Negative for injury, jr8 pain, and discharge, Neck: Negative for injury, pain, and swelling, Abdomen/GI: Negative for abdominal pain, nausea, vomiting, diarrhea, and constipation, Back: Negative for injury and pain, MS/Extremity: Negative for injury and deformity, Skin: Negative for injury, rash, and discoloration, Neuro: Negative for headache, weakness, numbness, tingling, and seizure. 10:47 Cardiovascular: Positive for chest pain, Negative for edema, orthopnea, palpitations, paroxysmal nocturnal dyspnea. 10:47 Respiratory: Positive for cough, dyspnea on exertion, shortness of breath, wheezing. Exam: 10:47 Eyes: Pupils equal round and reactive to light, extra-ocular motions intact. Lids and jr8 lashes normal. Conjunctiva and sclera are non-icteric and not injected. Cornea within normal limits. Periorbital areas with no swelling, redness, or edema. ENT: Nares patent. No nasal discharge, no septal abnormalities noted. Tympanic membranes are normal and external auditory canals are clear. Oropharynx with no redness, swelling, or masses, exudates, or evidence of obstruction, uvula midline. Mucous membranes moist. Neck: Trachea midline, no thyromegaly or masses palpated, and no cervical lymphadenopathy. Supple, full range of motion without nuchal rigidity, or vertebral point tenderness. No Meningismus. Cardiovascular: Regular rate and rhythm with a normal S1 and S2. No gallops, murmurs, or rubs. Normal PMI, no JVD. No pulse deficits. Abdomen/GI: Soft, non-tender, with normal bowel sounds. No distension or tympany. No guarding or rebound. No evidence of tenderness throughout. Back: No spinal tenderness. No costovertebral tenderness. Full range of motion. Skin: Warm, dry with normal turgor. Normal color with no rashes, no lesions, and no evidence of cellulitis. MS/ Extremity: Pulses equal, no cyanosis. Neurovascular intact. Full, normal range of motion. Neuro: Awake and alert, GCS 15, oriented to person, place, time, and situation. Cranial nerves II-XII grossly intact. Motor strength 5/5 in all extremities. Sensory grossly intact. Cerebellar exam normal. Normal gait. 10:47 Respiratory: mild respiratory distress is noted, Respirations: tachypnea, that is mild, Breath sounds: wheezing: expiratory that is mild, is heard diffusely. Vital Signs: 09:39 BP 112 / 87; Pulse 83; Resp 17; Temp 98.3(TE); Pulse Ox 100% on R/A; Weight 61.23 kg tw2 (R); Height 5 ft. 11 in. (180.34 cm); Pain 10/10; 10:45 BP 129 / 71; Pulse 88; Resp 15; Pulse Ox 99% on R/A; hb 11:41 BP 117 / 71; Pulse 75; Resp 17; Pulse Ox 98% on R/A; hb 09:39 Body Mass Index 18.83 (61.23 kg, 180.34 cm) tw2 MDM: 09:42 Patient medically screened. [facility] 11:28 Data reviewed: vital signs, nurses notes, lab test result(s), radiologic studies, plain jr films. Data interpreted: Pulse oximetry: on room air is 99 %. Interpretation: normal. Counseling: I had a detailed discussion with the patient and/or guardian regarding: the historical points, exam findings, and any diagnostic results supporting the discharge/admit diagnosis, lab results, radiology results, the need for outpatient follow up, a family practitioner, to return to the emergency department if symptoms worsen or persist or if there are any questions or concerns that arise at home. Response to treatment: the patient's symptoms have markedly improved after treatment. ED course: Patient not requiring oxygen. Feeling much better. No wheezing post treatment. Possible early pneumonia present. Will put on Abx along with breathing treatments, cough medicine, and steroids. 10/19 09:46 Order name: CBC with Diff [facility] 10/19 09:46 Order name: Basic Metabolic Panel [facility] 10/19 09:46 Order name: Influenza Screen (a \T\ B) [facility] 10/19 10:16 Order name: Basic Metabolic Panel; Complete Time: 10:23 EDMS 10/19 10:17 Order name: Influenza Screen (A ; Complete Time: 10:32 EDMS 10/19 10:23 Order name: CBC with Automated Diff; Complete Time: 10:32 EDMS 10/19 09:46 Order name: IV; Complete Time: 09:56 [facility] 10/19 09:47 Order name: XRAY Chest (1 view) [facility] Administered Medications: 09:56 Drug: Albuterol - atroVENT (3:1) (2.5 mg - 0.5 mg) 3 ml Route: Nebulizer; hb 10:45 Follow up: Response: No adverse reaction hb 09:57 Drug: SOLU-Medrol 125 mg Route: IVP; Site: right antecubital; hb 10:45 Follow up: Response: No adverse reaction hb 09:57 Drug: Tussionex Pennkinetic ER 5 ml Route: PO; hb 10:45 Follow up: Response: No adverse reaction hb 10:59 Drug: Potassium Chloride 40 mEq Route: PO; hb 11:42 Follow up: Response: No adverse reaction tw2 Disposition: 12:44 Co-signature as Attending Physician, Brain Villagran MD I agree with the assessment and kdr plan of care. Disposition: 10/20/19 11:29 Discharged to Home. Impression: Pneumonia due to other specified bacteria. - Condition is Stable. - Discharge Instructions: Community-Acquired Pneumonia, Adult. - Prescriptions for Prednisone 20 mg Oral Tablet - take 1 tablet by ORAL route once daily for 5 days; 5 tablet. Albuterol Sulfate 2.5 mg /3 mL (0.083 %) Inhalation Solution for Nebulization - inhale 1 unit by NEBULIZATION route every 8 hours As needed; 1 box. Zithromax Z- Joel 250 mg Oral Tablet - take 1 tablet by ORAL route as directed for 5 days Day 1 - take two (2) tablets one time. Day 2, 3, 4 , 5 take one (1) tablet once daily.; 6 tablet. Albuterol Sulfate 90 mcg/actuation - inhale 1-2 puff by INHALATION route every 4-6 hours; 1 Inhaler. - Medication Reconciliation Form, Thank You Letter, Antibiotic Education, Prescription Opioid Use, Work release form, Family Work Release form. - Follow up: Private Physician; When: 2 - 3 days; Reason: Recheck today's complaints, Continuance of care, Re-evaluation by your physician. - Problem is new. - Symptoms have improved. Signatures: Dispatcher [employer] EDMS Brain Villagran MD MD [facility] Guevara Torres PA PA jr8 Lisa Seals RN RN Estephania Murphy RN RN tw2 Corrections: (The following items were deleted from the chart) 11:50 11:29 10/20/2019 11:29 Discharged to Home. Impression: Pneumonia due to other specified tw2 bacteria. Condition is Stable. Forms are Medication Reconciliation Form, Thank You Letter, Antibiotic Education, Prescription Opioid Use. Follow up: Private Physician; When: 2 - 3 days; Reason: Recheck today's complaints, Continuance of care, Re-evaluation by your physician. Problem is new. Symptoms have improved. jr8
[2019-10-20 12:07] VITALS: TEMP 98.3
[2019-10-20 12:10] VITALS: BP 117/71; O2SAT 98
== END 2019-10-20 11:50 | disposition home or self-care (01) ==
LOC: ER 09:28
DX: J15.8 Pneumonia due to other specified bacteria (principal); Z88.8 Allergy status to other drugs, medicaments and biological substances
CPT/HCPCS: 36415; 71045; 80048; 85025; 87804; 94640; 96374; 99285; J2930

== ENCOUNTER 2019-10-27 11:10 | Emergency (ER) | payer SELFPAY ==
--- NOTE | 2019-10-27 11:51 | RAD REPORT ---
EXAM DESCRIPTION: RAD - Chest Single View - 10/27/2019 11:45 am CLINICAL HISTORY: COUGH Chest pain. COMPARISON: Chest Single View dated 10/20/2019; Chest Single View dated 01/14/2019; Chest Pa And Lat (2 Views) dated 11/11/2017; Chest Single View dated 01/29/2017 FINDINGS: Portable technique limits examination quality. Both lung bases are hazy, unchanged. This may be related to mild infiltrate or atelectasis. The heart is normal in size. No displaced fractures. IMPRESSION: No significant change is seen since 10/20/2019.
--- NOTE | 2019-10-27 13:20 | EDPHYS ---
Physician Documentation [facility] Name: Mica Michel Age: 24 yrs Sex: Female : 1995 Arrival Date: 10/27/2019 Time: 11:13 Bed 20 Private MD: ED Physician Brain Villagran HPI: 10/26 13:15 This 24 yrs old Female presents to ER via Ambulatory with complaints of la1 Facial Swelling, Breathing Difficulty. 13:15 Onset: The symptoms/episode began/occurred this morning. Associated signs and symptoms: la1 The patient has no apparent associated signs or symptoms. Modifying factors: The patient symptoms are alleviated by nothing, the patient symptoms are aggravated by nothing. The patient has not experienced similar symptoms in the past. Pt reports that she had PNE recently but this morning she woke up and her face was swollen. Historical: - Allergies: 11:26 dayquil; ss 11:26 Nyquil; ss 11:26 pseudoephedrine-DM; ss - Home Meds: 11:26 None [Active]; ss - PMHx: 11:26 Tachycardia; pvc's; SVT; ss - PSHx: 11:26 None; ss - Immunization history:: Adult Immunizations up to date. - Social history:: Smoking status: Patient denies any tobacco usage or history of. ROS: 13:16 Constitutional: Negative for fever, chills, and weight loss, Eyes: Negative for injury, la1 pain, redness, and discharge, ENT: Negative for injury, pain, and discharge, + for mild facial and periorbital swelling Neck: Negative for injury, pain, and swelling, Cardiovascular: Negative for chest pain, palpitations, and edema, Respiratory: Negative for shortness of breath, cough, wheezing, and pleuritic chest pain, Abdomen/GI: Negative for abdominal pain, nausea, vomiting, diarrhea, and constipation, Back: Negative for injury and pain, MS/Extremity: Negative for injury and deformity, Skin: Negative for injury, rash, and discoloration, Neuro: Negative for headache, weakness, numbness, tingling, and seizure. Exam: 13:16 Constitutional: This is a well developed, well nourished patient who is awake, alert, la1 and in no acute distress. Head/Face: Normocephalic, atraumatic. Eyes: Pupils equal round and reactive to light, extra-ocular motions intact. Lids and lashes normal. Conjunctiva and sclera are non-icteric and not injected. Cornea within normal limits. Periorbital areas withmild swelling ENT: Nares patent. No nasal discharge, no septal abnormalities noted. Tympanic membranes are normal and external auditory canals are clear. Oropharynx with no redness, swelling, or masses, exudates, or evidence of obstruction, uvula midline. Mucous membranes moist. Chest/axilla: Normal chest wall appearance and motion. Nontender with no deformity. No lesions are appreciated. Cardiovascular: Regular rate and rhythm with a normal S1 and S2. No gallops, murmurs, or rubs. Normal PMI, no JVD. No pulse deficits. Respiratory: Lungs have equal breath sounds bilaterally, clear to auscultation Abdomen/GI: Soft, non-tender, with normal bowel sounds. No distension Back: No spinal tenderness. No costovertebral tenderness. Full range of motion. Skin: Warm, dry with normal turgor. Normal color with no rashes, no lesions, and no evidence of cellulitis. MS/ Extremity: Pulses equal, no cyanosis. Neurovascular intact. Full, normal range of motion. Vital Signs: 11:23 BP 127 / 91; Pulse 89; Resp 18; Temp 98.5(TE); Pulse Ox 100% on R/A; Weight 71.21 kg; ss Height 5 ft. 10 in. (177.80 cm); Pain 9/10; 13:00 BP 111 / 87; Pulse 83; Resp 16 S; Pulse Ox 100% on R/A; jl7 11:23 Body Mass Index 22.53 (71.21 kg, 177.80 cm) MDM: 11:22 Patient medically screened. la1 13:17 Data reviewed: vital signs, nurses notes. Counseling: I had a detailed discussion with la1 the patient and/or guardian regarding: the historical points, exam findings, and any diagnostic results supporting the discharge/admit diagnosis, the need for outpatient follow up, a family practitioner. Medication response: benadryl. Response to treatment: the patient's symptoms have resolved after treatment, and as a result, I will discharge patient. 10/26 11:32 Order name: Strep; Complete Time: 13:04 la1 10/26 11:32 Order name: Flu; Complete Time: 13:04 10/26 11:32 Order name: Chest Single View XRAY; Complete Time: 12:10 10/26 12:26 Order name: Throat Culture EDMS Administered Medications: 12:00 Drug: Pepcid 20 mg Route: PO; jl7 13:00 Follow up: Response: No adverse reaction jl7 12:00 Drug: Benadryl 50 mg Route: PO; jl7 13:00 Follow up: Response: No adverse reaction jl7 12:00 Drug: Motrin 600 mg Route: PO; jl7 13:00 Follow up: Response: No adverse reaction jl7 12:00 Drug: Tylenol 650 mg Route: PO; jl7 13:00 Follow up: Response: No adverse reaction jl7 Disposition: 16:27 Co-signature as Attending Physician, Brain Villagran MD I agree with the assessment and kdr plan of care. Disposition: 10/27/19 13:18 Discharged to Home. Impression: Facial edema. - Condition is Stable. - Discharge Instructions: Allergies, Adult, Edema. - Medication Reconciliation Form, Thank You Letter form. - Follow up: Private Physician; When: 2 - 3 days; Reason: Recheck today's complaints, Continuance of care, Re-evaluation by your physician. Follow up: Emergency Department; When: As needed; Reason: Worsening of condition. - Problem is new. - Symptoms have improved. Signatures: Dispatcher [employer] EDTN Brain Villagran MD MD kdr Smirch, Shelby, RN RN ss Deyn Ramos, LEAD WORKER OF HOUSEKEEPING AND LAUNDRY-C LEAD WORKER OF HOUSEKEEPING AND LAUNDRY-Cla1 Hue Carrillo RN RN jl7 Corrections: (The following items were deleted from the chart) 13:43 13:18 10/27/2019 13:18 Discharged to Home. Impression: Facial edema. Condition is jl7 Stable. Forms are Medication Reconciliation Form, Thank You Letter, Antibiotic Education, Prescription Opioid Use. Follow up: Private Physician; When: 2 - 3 days; Reason: Recheck today's complaints, Continuance of care, Re-evaluation by your physician. Follow up: Emergency Department; When: As needed; Reason: Worsening of condition. Problem is new. Symptoms have improved. la1
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
[2019-10-27 13:49] VITALS: TEMP 98.5; O2SAT 100
[2019-10-27 13:55] VITALS: BP 111/87
== END 2019-10-27 13:43 | disposition home or self-care (01) ==
LOC: ER 11:10
DX: R60.9 Edema, unspecified (principal); Z88.8 Allergy status to other drugs, medicaments and biological substances
CPT/HCPCS: 71045; 87070; 87081; 87804; 99284